=== PATIENT | female | born 1985 | race Caucasian/White ===

== ENCOUNTER 2017-01-09 10:03 | Inpatient (IN) | payer OTHER ==
[~2017-01-09] VITALS: Ht 157.5 cm; Wt 89.0 kg
[~2017-01-09 10:03] MED LIST: CEPH-443 PO; FAMO-18 PO; FERR27TA PO; HYDR-906 PO; PREN1TAB49 PO
[2017-01-09 10:14] VITALS: Ht 157.5 cm; Wt 89.0 kg
[2017-01-09] MEDS ORDERED: LACTATED RINGER'S 1,000 ML IV SCH (10:17)
[2017-01-09] MEDS ORDERED: CEFAZOLIN 2 GM/50 ML (PMX) 50 ML IV SCH (10:30)
[2017-01-09] MEDS ORDERED: OXYTOCIN 30 UNITS/LR 500 ML IV PRN ×2 (10:30→18:30)
[2017-01-09] MEDS ORDERED: CARBOPROST 250 MCG INJ IM PRN ×2 (10:30→18:30)
[2017-01-09] MEDS ORDERED: METHYLERGONOVINE 0.2 MG INJ IM PRN ×2 (10:30→18:30)
[2017-01-09] MEDS ORDERED: MISOPROSTOL 200 MCG TAB PR PRN ×2 (10:30→18:30)
[2017-01-09 11:13] LABS: ADD SCAN DIFF NO
[2017-01-09 11:21] LABS: BASOPHILS % 0.3 % (0.0-2.0); EOSINOPHILS % 0.3 % (0.0-7.0); HEMATOCRIT 33.1 % (37.0-47.0); LYMPHOCYTES # 1.6 10^3/ul (0.8-2.9); LYMPHOCYTES % 25.5 % (15.0-51.0); MEAN CORPUSCULAR HEMOGLOBIN 29.2 pg (29.0-33.0); MEAN CORPUSCULAR HGB CONC 33.2 g/dl (32.0-37.0); MEAN CORPUSCULAR VOLUME 87.8 fl (82.0-101.0); MEAN PLATELET VOLUME 11.2 fl (7.4-10.4); MONOCYTE # 0.5 10^3/ul (0.3-0.9); MONOCYTES % 7.7 % (0.0-11.0); PLATELET COUNT 226 10^3/UL (140-415); RED BLOOD COUNT 3.77 10^6/ul (4.20-5.40); RED CELL DISTRIBUTION WIDTH 13.2 % (11.5-14.5); WHITE BLOOD COUNT 6.1 10^3/ul (4.8-10.8)
[2017-01-09 12:30] LABS: INR 0.92; PARTIAL THROMBOPLASTIN TIME 25.8 Sec (25.0-35.0); PROTIME 12.4 Sec (12.2-14.2)
[2017-01-09] MEDS ORDERED: morphine SULFATE/PF (10 MG/10 ML) INJ ONE (12:50)
[2017-01-09] MEDS ORDERED: KETOROLAC 30 MG INJ ONE (12:50)
[2017-01-09] MEDS ORDERED: METOCLOPRAMIDE 10 MG INJ ONE (12:50)
[2017-01-09] MEDS ORDERED: EPHEDrine SULFATE 50 MG/5 ML SYG ONE (13:11)
--- NOTE | 2017-01-09 13:19 | HP ---
Date/Time of Note Date/Time of Note DATE: 01/09/17 TIME: 13:11 OB - History Hx of Present Free Text/Dictation 31 years old female 4 para 2 history of 2 previous IAB1 admitted to [facility] at 39 weeks and 1 day for repeat section and bilateral tubal ligation this patient has been under the care of the [place] woman's [facility] and her was not complicated with gestational diabetes -induced hypertension or any other seizure surgical or medical condition. Estimated Due Date: January 15, 2017 : 4 Para: 2 Therapeutic : 1 Care: Good Care Ultrasounds: Normal mid trimester US Medical Complications: None Past Family/Social History * Past Medical, Surgical, Family and Obstetric Histories reviewed from chart. Rubella: immune RPR/VDRL: Negative GBS Status: Negative HBsAG: Negative OB Admission Exam Physical Exam HEENT: WNL Heart: Rhythm Normal Extremities: Normal Reflexes: Normal Cervical Dilatation: None Effacement: 0% Membranes: Intact Heart Rate: 120's Accelerations: Accelerations Present Decelerations: No Decelerations Contractions on Admission: None Last 72 hours Lab Results CBC & BMP 01/09/17 10:40 OB Assessment/Plan Reason for admission: other (Repeat for the third time bilateral tubal ligation) Plan: Section, Other (Repeat bilateral tubal ligation) Other plan: Repeat bilateral tubal ligation patient has been counseled regarding the permanency of the tubal ligation with possibility of failure of this procedure increased risk of ectopic future failure to conceive and she would like to with the plan of repeat bilateral tubal ligation WANDER RAM MD January 09, 2017 13:19
[2017-01-09] MEDS ORDERED: DIPHENHYDRAMINE 50 MG INJ IV PRN ×2 (14:00→14:30)
[2017-01-09] MEDS ORDERED: MEPERIDINE 25 MG INJ IV PRN (14:00)
[2017-01-09] MEDS ORDERED: METOCLOPRAMIDE 10 MG INJ IV PRN (14:00)
[2017-01-09] MEDS ORDERED: ONDANSETRON 4 MG INJ IV PRN ×2 (14:00→14:30)
[2017-01-09] MEDS ORDERED: HYDROmorphONE (0.2 MG/ML) 10ML SYG IV PRN ×3 (14:00)
[2017-01-09] MEDS ORDERED: OXYTOCIN 30 UNITS/LR 500 ML IV ONE (14:03)
[2017-01-09] MEDS ORDERED: NALOXONE (0.4 MG/ML) INJ IV PRN (14:30)
[2017-01-09] MEDS ORDERED: PROCHLORPERAZINE 10 MG INJ IV PRN (14:30)
[2017-01-09] MEDS ORDERED: KETOROLAC 30 MG INJ IV PRN (14:30)
[2017-01-09] MEDS ORDERED: HYDROmorphONE 1 MG/ML SYG IV PRN ×3 (14:30)
[2017-01-09 17:25] VITALS: BP 111/60; PULSE 59; RESP 16
[2017-01-09] MEDS ORDERED: LANOLIN 7 GM TUBE TOP PRN (18:30)
[2017-01-09] MEDS ORDERED: ACETAMINOPHEN/CODEINE #3 TAB PO PRN ×2 (18:30)
[2017-01-09] MEDS ORDERED: OXYCODONE/ACETAMINOPHEN (5/325) TAB PO PRN (18:30)
[2017-01-09] MEDS ORDERED: CEFAZOLIN 1 GM/50 ML (PMX) 50 ML IVPB SCH (18:30)
[2017-01-09 19:45] VITALS: BP 107/69; PULSE 72; RESP 19
[2017-01-09] MEDS: OXYTOCIN 30 UNITS/LR 500 ML IV SCH (20:23)
--- NOTE | 2017-01-09 22:58 | OPR ---
DATE OF OPERATION: 01/09/2017 PREOPERATIVE DIAGNOSES: 1. Intrauterine at 39 weeks and 1 day. 2. History of previous section. 3. Request for voluntary sterilization, bilateral tubal ligation. POSTOPERATIVE DIAGNOSES: 1. Intrauterine at 39 weeks and 1 day. 2. History of previous section. 3. Request for voluntary sterilization, bilateral tubal ligation. OPERATION PERFORMED: Repeat transverse low cervical section, bilateral tubal ligation. SURGEON: Wander Gan MD SOCIAL SERVICE WORKER: Lis Varela MD ANESTHESIA: Spinal. ANESTHESIOLOGIST: Dr. Homa MD FINDINGS: Live baby boy with the Apgars 7 and 9. Baby weighed 7 pounds, equal to 3185 grams. DETAILS OF THE PROCEDURE: Under satisfactory spinal anesthesia, the patient prepped and draped and placed in supine position tilted to the left. Pfannenstiel incision was made. Incision carried thr ough to subcutaneous tissue. Bleeders brought under control with electrocautery. Fascia incised to the length of incision. Rectus muscle divided in midline. Peritoneum exposed, entered through a t ransverse incision, exploration of abdomen. Gravid uterus, extremely thinned out lower segment of t he uterus, normal-appearing tubes and ovaries. Bladder flap was developed. Transverse incision was made in the lower segment of the uterus. Amniotic sac ruptured. Clear amniotic fluid noted. Live baby boy was delivered from rosalie breech presentation. Shoulders delivered without any difficulty. Head delivered with Mauriceau maneuver. Nasal oropharyngeal suction was performed. Cord clamped after stopped pulsation. Baby handed to the team for immediate attention. The patient rec eived 20 units of Pitocin. Placenta delivered manually intact. Uterine cavity cleaned with wet spo nge and drainage established. Uterus closed in 2 layers using Monocryl #1 in continuous fashion. B ilateral tubal ligation performed by identifying the fimbria and ampullar section of the right fallo pian tube. Suture material used #0 plain catgut, was reinforced with the same suture material. Ronni t portion of the tube including the portion of the ampulla and the fimbria was excised, and cut end of the tube was cauterized and the specimen submitted for pathology. The same procedure performed f or the opposite side. Peritoneal cavity irrigated with warm saline. Sponge, needle, instrument rep orted to be correct. Abdominal peritoneum closed with 2-0 chromic catgut continuously. Rectus musc le approximated with 2 interrupted 2-0 chromic catgut. Fascia closed with #1 PDS in a continuous fa shion. Subcutaneous tissue approximated with few interrupted 2-0 chromic catgut. Skin closed with ovidio. Estimated blood loss 600 mL. Urine bag contained 200 mL of clear urine. The patient tole rated procedure well, transferred to recovery room in good condition. Dictated By: WANDER MONZON/NAKIA Conf#: [id number] DID#: [id number]
[2017-01-10 00:04] VITALS: BP 105/66; PULSE 71; RESP 20
[2017-01-10] MEDS: OXYTOCIN 30 UNITS/LR 500 ML IV SCH ×3 (01:04→08:04)
[2017-01-10 04:00] VITALS: BP 108/60; PULSE 89; RESP 19
[2017-01-10] MEDS ORDERED: LACTATED RINGER'S 1,000 ML IV SCH (04:30)
[2017-01-10 08:00] VITALS: BP 115/67; PULSE 91; RESP 17
[2017-01-10] MEDS: SENNA/DOCUSATE NA (8.6MG/50MG) TAB PO SCH ×2 (08:04→21:11)
[2017-01-10 08:16] LABS: ADD SCAN DIFF NO
[2017-01-10 08:22] LABS: BASOPHILS % 0.1 % (0.0-2.0); EOSINOPHILS % 0.4 % (0.0-7.0); HEMATOCRIT 29.3 % (37.0-47.0); HEMOGLOBIN 9.9 g/dl (12.0-16.0); LYMPHOCYTES % 24.3 % (15.0-51.0); MEAN CORPUSCULAR HEMOGLOBIN 29.6 pg (29.0-33.0); MEAN CORPUSCULAR HGB CONC 33.8 g/dl (32.0-37.0); MEAN CORPUSCULAR VOLUME 87.5 fl (82.0-101.0); MEAN PLATELET VOLUME 11.3 fl (7.4-10.4); MONOCYTE # 0.5 10^3/ul (0.3-0.9); MONOCYTES % 6.3 % (0.0-11.0); NEUTROPHIL # 5.6 10^3/ul (1.6-7.5); NEUTROPHILS % 68.5 % (39.0-77.0); PLATELET COUNT 194 10^3/UL (140-415); RED BLOOD COUNT 3.35 10^6/ul (4.20-5.40); RED CELL DISTRIBUTION WIDTH 13.2 % (11.5-14.5); WHITE BLOOD COUNT 8.2 10^3/ul (4.8-10.8)
--- NOTE | 2017-01-10 09:44 | PN ---
Date/Time of Note Date/Time of Note DATE: 01/10/17 TIME: 09:43 OB Subjective Subjective Subjective Afebrile Vital signs are stable abdomen soft uterus firm lochia normal extremity normal bowel sounds. Incision dry ambulation encouraged. WANDER RAM MD January 10, 2017 09:44
[2017-01-10 12:00] VITALS: BP 102/63; PULSE 90; RESP 18
[2017-01-10] MEDS: OXYCODONE/ACETAMINOPHEN (5/325) TAB PO PRN ×2 (15:18→19:38)
[2017-01-10 16:13] VITALS: BP 118/71; PULSE 83; RESP 17
[2017-01-10] MEDS: IBUPROFEN 600 MG TAB PO SCH ×2 (18:06→23:42)
--- NOTE | 2017-01-10 18:49 | PN ---
Date/Time of Note Date/Time of Note DATE: 01/10/17 TIME: 18:46 Assessment/Plan VTE Prophylaxis VTE Prophylaxis Intervention: ambulation Lines/Catheters IV Catheter Type (from Nrsg): Peripheral IV Subjective 24 Hr Interval Summary Free Text/Dictation Anesthesia Note: A 31 year female post duramorph for post op pain POD #1 is doing well, pain is controlled, no headache or itching or n/v, back is clean. care per surgery team. Exam/Review of Systems Vital Signs Vitals Vital Signs Date Time Temp Pulse Resp B/P Pulse Ox O2 Delivery O2 Flow Rate FiO2 01/10/17 16:55 97 21 01/10/17 16:13 97.8 83 17 118/71 Room Air Intake and Output 01/09/17 01/09/17 01/10/17 15:00 23:00 07:00 Intake Total 2650 ml 1050 ml 1347 ml Output Total 250 ml 350 ml 450 ml Balance 2400 ml 700 ml 897 ml Results Result Diagram: 01/10/17 0729 Results 24 hrs Laboratory Tests Test 01/10/17 07:29 White Blood Count 8.2 # Red Blood Count 3.35 L Hemoglobin 9.9 L Hematocrit 29.3 L Mean Corpuscular Volume 87.5 Mean Corpuscular Hemoglobin 29.6 Mean Corpuscular Hemoglobin Concent 33.8 Red Cell Distribution Width 13.2 Platelet Count 194 Mean Platelet Volume 11.3 H Neutrophils % 68.5 Lymphocytes % 24.3 Monocytes % 6.3 Eosinophils % 0.4 Basophils % 0.1 Nucleated Red Blood Cells % 0.0 Neutrophils # 5.6 Lymphocytes # 2.0 Monocytes # 0.5 Eosinophils # 0.0 Basophils # 0.0 Nucleated Red Blood Cells # 0.0 Medications Medications Current Medications Acetaminophen/ Codeine Phosphate (Tylenol No.3) 1 tab Q4H PRN PO PAIN LEVEL 4-6 ; Start 01/09/17 at 18:30 Acetaminophen/ Codeine Phosphate (Tylenol No.3) 2 tab Q4H PRN PO PAIN LEVEL 7- 10; Start 01/09/17 at 18:30 Oxycodone/ Acetaminophen (Percocet (5/ 325)) 1 tab Q4H PRN PO PAIN LEVEL 4-6; Start 01/09/17 at 18:30 Oxycodone/ Acetaminophen (Percocet (5/ 325)) 2 tab Q4H PRN PO PAIN LEVEL 7-10 Last administered on 01/10/17 15:18; Admin Dose 2 TAB; Start 01/09/17 at 18:30 Ibuprofen (Motrin) 600 mg Q6 PO Last administered on 01/10/17 18:06; Admin Dose 600 MG; Start 01/10/17 at 18:00 Simethicone (Mylicon) 160 mg Q8H PRN PO DISTENSION/GAS/BLOATING; Start at 18:30 Senna/Docusate Sodium (Senokot-S) 1 tab BID PO Last administered on 01/10/17 08:04; Admin Dose 1 TAB; Start 01/10/17 at 09:00 Diphtheria/ Tetanus/Acell Pertussis 0.5 ml 0.5 ml ONCE ONCE IM* ; Start at 09:00; Stop 01/12/17 at 09:01 Oxytocin/Lactated Ringer's 500 ml @ 0 mls/hr ONCE PRN IV For Hemorrhage Management; Start 01/09/17 at 18:30 Methylergonovine Maleate (Methergine) 0.2 mg ONCE PRN IM VAGINAL BLEEDING; Start 01/09/17 at 18:30 Carboprost Tromethamine (Hemabate) 250 mcg ONCE PRN IM VAGINAL BLEEDING; Start 01/09/17 at 18:30 Misoprostol (Cytotec) 1,000 mcg ONCE PRN [place] VAGINAL BLEEDING; Start 01/09/17 at 18:30 JUSTIN PIMENTEL MD January 10, 2017 18:49
[2017-01-10 19:45] VITALS: BP 118/69; PULSE 83; RESP 19
[2017-01-11] MEDS: IBUPROFEN 600 MG TAB PO SCH ×4 (05:43→23:46)
[2017-01-11 08:25] VITALS: BP 115/60; PULSE 71; RESP 17
[2017-01-11] MEDS: SENNA/DOCUSATE NA (8.6MG/50MG) TAB PO SCH ×2 (08:58→21:00)
--- NOTE | 2017-01-11 10:05 | PN ---
Date/Time of Note Date/Time of Note DATE: 01/11/17 TIME: 10:04 OB Subjective Subjective Subjective Post day 2 Afebrile vital signs stable abdomen soft incision dry bowel sounds had bowel movement extremity normal WANDER RAM MD January 11, 2017 10:05
[2017-01-11] MEDS: OXYCODONE/ACETAMINOPHEN (5/325) TAB PO PRN ×2 (13:59→22:53)
[2017-01-11 16:00] VITALS: BP 120/71; PULSE 81; RESP 16
[2017-01-11 20:00] VITALS: BP 119/64; PULSE 77; RESP 18
[2017-01-12 04:00] VITALS: BP 107/57; PULSE 60; RESP 18
[2017-01-12] MEDS: IBUPROFEN 600 MG TAB PO SCH ×2 (05:33→12:42)
[2017-01-12 08:15] VITALS: BP 111/66; PULSE 57; RESP 16
[2017-01-12] MEDS ORDERED: DIPHTH/TET/ACEL PERTUSS (ADULT) 0.5 ML VIAL IM* ONE (09:00)
[2017-01-12] MEDS: SENNA/DOCUSATE NA (8.6MG/50MG) TAB PO SCH (09:20)
[2017-01-12] MEDS: OXYCODONE/ACETAMINOPHEN (5/325) TAB PO PRN (10:11)
--- NOTE | 2017-01-13 12:54 | DS ---
Date/Time of Note Date/Time of Note DATE: 01/13/17 TIME: 12:52 Discharge Summary Admission/Discharge Info Admit Date/Time January 09, 2017 at 10:03 Discharge Date/Time January 12, 2017 at 15:10 Final Diagnosis Term repeat and bilateral tubal ligation Patient Condition: Good Procedures Repeat bilateral tubal ligation Hx of Present Illness Term history of previous request for bilateral tubal ligation Hospital Course Uneventful satisfactory Home Meds Reported Medications Vits W-Ca,Fe,Fa(<1MG) () 1 Tab Tablet, 1 TAB PO 02/01/12 Discontinued Reported Medications Ferrous Sulfate (Iron) 1 Tab Tablet, 1 TAB PO 02/01/12 Discontinued Scripts Famotidine* (Pepcid*) 20 Mg Tablet, 20 MG PO BID for 4 Days, TAB Prov:MATHIEU VICTOR 05/29/16 Hydrocodone/Acetaminophen ([place] 5-325 Tablet) 1 Each Tablet, 1 TAB PO Q6H Y for PAIN, #20 TAB Prov:MATHIEU VICTOR 05/29/16 Cephalexin* (Keflex*) 500 Mg Capsule, 500 MG PO BID for 7 Days, CAP Prov:DANIELA PENG 03/04/15 Follow-up Plan Post instructions given advised to make appointment in 4 days to discontinue ovidio Primary Care Provider Not On Staff Doctor Time spent on discharge: < 30 minutes WANDER RAM MD January 13, 2017 12:54
== END 2017-01-12 15:10 | disposition home or self-care (01) | DRG 766 ==
LOC: L-D 10:03 → PP1 17:00
PROVIDERS: ADMIT Obstetrics & Gynecology; ATTEND Obstetrics & Gynecology
PROC: 0UL70ZZ Occlusion of Bilateral Fallopian Tubes, Open Approach (ICD-10-PCS; 2017-01-09)
PROC: 10D00Z1 Extraction of Products of Conception, Low, Open Approach (ICD-10-PCS; principal; 2017-01-09 12:30)
DX: O34.211 Maternal care for low transverse scar from previous cesarean delivery (principal); Z30.2 Encounter for sterilization; Z3A.39 39 weeks gestation of pregnancy; Z37.0 Single live birth
CPT/HCPCS: 85025; 85610; 85730; 86592; 86850; 86900; 86901; 87340; 88302; 90715; 94760; 99464; J0690; J1885; J2274; J2590; J2765; J7120